=== PATIENT | female | born 1945 | race Caucasian/White ===

== ENCOUNTER 2024-11-01 14:34 | Outpatient (CLI) | payer MEDICARE, MEDICAID ==
[~2024-11-01 14:34] MED LIST: ASPI-1397 PO; ATOR40TA72 PO; BUDE10.26 INH; LISI20TA28 PO
--- NOTE | 2024-11-01 16:16 | RADIOLOGY REPORT ---
Procedure: CT CT CHEST ION Reason for study/Clinical History: LOCALIZED SWELLING, MASS AND LUMP, TRUNK Comparison Study: None TECHNIQUE: Multidetector CT of the chest was performed from the lung apices to the upper abdomen without the use of intravenous contract. Axial, coronal and sagittal multiplanar reformats were performed. Radiation Dose Information: CT Dose: CTDI volume is 3.8 mGy. Dose-length product is 149 mGy*cm The dose indicators for CT are the volume Computed Tomography (CT) Dose Index (CTDIvol) and the Dose Length Product (DLP), and are measured in units of mGy and mGy-cm, respectively. These indicators are not patient dose, but values generated from the CT scanner acquisition factors. The report includes radiation exposure data for exposures received during this examination. FINDINGS: Lower neck: Unremarkable. Lungs: Emphysema. 1.6 cm spiculated nodule in the right upper lobe. Heart/Vascular Structures: Cardiomegaly. Coronary artery calcifications. Vascular calcifications of the aorta. Lymph Nodes: No adenopathy Pleura: No pleural effusion or significant pneumothorax. Musculoskeletal: Degenerative changes of the spine. Scoliosis. Soft tissues: Normal. Upper abdomen: Extensive Vascular atherosclerotic calcifications of the abdominal aorta. IMPRESSION: 1.6 cm spiculated nodule in the right upper lobe. Radiation optimization: All CT scans at this facility use at least one of these dose optimization techniques: automated exposure control mA and/or kV adjustment per patient size (includes targeted exams where dose is matched to clinical indication) or iterative reconstruction.
== END 2024-11-01 23:59 | disposition home or self-care (01) ==
LOC: RAD 14:34
PROVIDERS: ATTEND Internal Medicine Critical Care Medicine
DX: J43.9 Emphysema, unspecified (principal); R91.1 Solitary pulmonary nodule; I25.10 Atherosclerotic heart disease of native coronary artery without angina pectoris; M47.814 Spondylosis without myelopathy or radiculopathy, thoracic region; M41.86 Other forms of scoliosis, lumbar region
CPT/HCPCS: 71250

== ENCOUNTER 2024-11-03 05:52 | Day surgery (SDC) | payer MEDICARE, MEDICAID ==
[2024-10-27 14:04] LABS: MEAN PLATELET VOLUME 7.9 FL (7.4-10.4); PRE OP HEMATOCRIT 45.2 % (35.0-45.0); PRE OP HEMOGLOBIN 15.1 g/dL (12.0-16.0); PRE OP PLATELET COUNT 236 X10'3 (140-440); PRE OP WHITE BLOOD COUNT 7.4 10'3 (4.8-10.8); RED CELL DISTRIBUTION WIDTH 14.9 % (11.5-14.5)
[2024-10-27 14:18] LABS: CREATININE 0.75 MG/DL (0.40-0.90); PRE OP ALT 20 U/L (30-65); PRE OP ANION GAP 12 (8-16); PRE OP AST 21 U/L (10-37); PRE OP BILIRUB, TOTAL 0.4 MG/DL (0.0-1.0); PRE OP GLUCOSE 87 MG/DL (70-104); PRE OP POTASSIUM 4.3 MMOL/L (3.4-5.1); PRE OP SODIUM 143 MMOL/L (135-145); TOTAL CARBON DIOXIDE 21.9 MMOL/L (24-32); eGFR 75 ML/MIN
[~2024-11-03] VITALS: Ht 157.5 cm; Wt 42.0 kg
[2024-11-03] VITALS (12 sets, daily range): BP systolic 115–186; BP diastolic 54–89; PULSE 57–140; RESP 11–25; TEMP 97.3; O2SAT 94–100
--- NOTE | 2024-11-03 06:20 | ELECTROCARDIOGRAPH REPORT ---
[facility] Test Date: 2024-11-03 Test Time: 06:17:13 Pat Name: ROSARIO LAFLEUR Department: [facility] Patient ID: [id number] Room: Gender: F [employer]: : 1945 Requested By: PHILLIP PATTERSON Order Number: [id number] Reading MD: Dr. DINORAH Longoria Measurements Intervals [place] Rate: 55 P: 76 [place]: 179 QRS: -46 QRSD: 89 T: 62 QT: 444 QTc: 425 Interpretive Statements Sinus rhythm Left atrial enlargement Left anterior fascicular block Anterior infarct, old Electronically Signed On 11-03-2024 16:27:[address] DINORAH Longoria Please click the below link to view image of tracing.
[2024-11-03] MEDS: ringers solution, lacted 1,000 ML IV SCH (06:27)
[2024-11-03] MEDS: albuterol 2.5 MG/3 ML nebule NEB ONE (07:55)
[2024-11-03] MEDS ORDERED: hydrALAZINE 20mg/ml inj. IV PRN (08:10)
[2024-11-03] MEDS ORDERED: acetaminophen 1,000mg/100ml IV 100 ML IV PRN (08:10)
[2024-11-03] MEDS ORDERED: HYDROmorphone/PF 0.2 MG/ML SYRINGE IV PRN ×2 (08:10)
[2024-11-03] MEDS ORDERED: ringers solution, lacted 1,000 ML IV SCH (08:10)
[2024-11-03] MEDS ORDERED: labetalol 20mg/4ml (5mg/ml) syringe IV PRN (08:10)
[2024-11-03] MEDS ORDERED: morphine 4 MG/ML inj SYRINge IV PRN (08:10)
[2024-11-03] MEDS ORDERED: fentaNYL/PF 50MCG/1 ML 2ML syringe ONE (08:30)
[2024-11-03] MEDS ORDERED: midazolam 1 mg/ML 2ml injection ONE (08:45)
[2024-11-03] MEDS ORDERED: propofol inj 20 ML IV ONE (08:46)
[2024-11-03] MEDS ORDERED: ondansetron/PF 4mg/2ml inj ONE (08:46)
[2024-11-03] MEDS ORDERED: dexamethasone sod phosphate 4mg/ml inj. ONE (08:46)
[2024-11-03] MEDS ORDERED: rocuronium 10mg/ml inj IV ONE (08:46)
[2024-11-03] MEDS ORDERED: LIDOcaine 1%/PF 5ML 10 MG/ML VIAL ONE (08:46)
[2024-11-03] MEDS ORDERED: glycopyrrolate 0.2mg/ml inj ONE (09:20)
[2024-11-03] MEDS: ipratropium/albuterol 3ml nebule NEB PRN (09:44)
--- NOTE | 2024-11-03 09:54 | RADIOLOGY REPORT ---
CHEST RADIOGRAPH Indication: r/o pneumothorax Technique: Single frontal view of the chest was obtained COMPARISON: CT CT CHEST ION on DOS: 11/01/24 FINDINGS: Lines and Tubes: None Lungs: Congestion Pleura: No effusion. No pneumothorax. Cardiomediastinal contours: Unremarkable Bones: Unremarkable IMPRESSION: Increased interstital prominence. This may represent pulmonary vascular congestion and/or viral pneumonia. Clinical correlation advised.
[2024-11-03] MEDS: ondansetron/PF 4mg/2ml inj IV PRN (10:04)
--- NOTE | 2024-11-03 10:25 | OPERATIVE REPORT ---
DATE OF SURGERY: 11/03/2024 DICTATING PHYSICIAN: Torsten Noland MD PROCEDURE: Bronchoscopy. INDICATIONS: The patient with a right upper lobe mass concerning for malignancy. POSTOPERATIVE DIAGNOSIS: Right upper lobe mass concerning for malignancy. She had a robotic bronchoscopy, cone beam CT scan of the bedside, anesthesia, intubation, EBUS, BAL. DESCRIPTION OF PROCEDURE: The patient signed a consent after indications, potential complications were explained, after which we took the usual timeout, the patient was intubated and sedated. We already had a procedure planned through the robotic bronchoscopy system. We already had labeled the nodule and the computer already had generated a path to get into it. So, follow the computer program, the path to get into the mass. We navigated into the mass and I was able to confirm. Once I got into the mass, I pulled out the camera and was able to confirm the right place with a radial . We got a few passes and then the catheter moved and I was unable to find the position again, so I decided to go ahead and do a cone beam CT scan of the bedside with a needle in place and actually when I did the cone beam CT scan, I realized that I had the needle right in the middle of the mass, so we recalibrated and actually we were in the right place to begin with, so we re-adjusted and re-did more passes. We got about 7 samples from the mass and then we made sure there was no pneumothorax with fluoroscopy [employer] lines account assistant. We switched over to the EBUS. There were some paratracheal lymph nodes that are slightly enlarged in zone 7, 10R, and 10L. We got samples there. We also obtained a BAL on the left upper lobe. The patient tolerated the procedure well. No complications. Torsten Noland MD TID: [id number] RECEIPT: [id number] DENISE/JOBY
== END 2024-11-03 10:40 | disposition home or self-care (01) ==
LOC: PAS 05:52
PROVIDERS: ATTEND Internal Medicine Critical Care Medicine
DX: R22.2 Localized swelling, mass and lump, trunk (principal); J98.4 Other disorders of lung; I44.4 Left anterior fascicular block; I25.2 Old myocardial infarction; I10 Essential (primary) hypertension; J44.9 Chronic obstructive pulmonary disease, unspecified; E78.5 Hyperlipidemia, unspecified; Z86.73 Personal history of transient ischemic attack (TIA), and cerebral infarction without residual deficits; Z79.82 Long term (current) use of aspirin; Z79.899 Other long term (current) drug therapy; Z90.49 Acquired absence of other specified parts of digestive tract; Z98.890 Other specified postprocedural states
CPT/HCPCS: 31624; 31628; 31653; 36415; 71045; 80053; 82948; 85025; 87015; 87070; 87116; 87206; 88173; 88305; 88312; 93005; 94640; 94760; A4618; J1100; J1938; J2250; J2405; J2704; J2710; J3010; J3490; J7120; Z7506; Z7508; Z7512; Z7610; 31622; 31625; 31626; 31627; 31654